=== PATIENT | female | born 1940 | race Hispanic/Latino ===

== ENCOUNTER 2018-02-03 12:08 | Outpatient (CLI) | payer MEDICARE | END 2018-02-03 12:09 | disposition home or self-care (01) | LOC: BICMAMMO 12:08 | PROVIDERS: ATTEND Family Medicine | DX: Z12.31 Encounter for screening mammogram for malignant neoplasm of breast (principal); R92.1 Mammographic calcification found on diagnostic imaging of breast | CPT/HCPCS: 77063; 77067 ==

== ENCOUNTER 2018-09-08 18:59 | Emergency (ER) | payer MEDICARE, MEDICAID ==
[2018-09-08] MEDS ORDERED: Aspirin Chewable 81 MG TAB ONE (19:14)
[2018-09-08] MEDS ORDERED: methylPREDNISolone Sod Succ/PF 125 MG/2 ML VIAL ONE (19:14)
[2018-09-08 19:32] LABS: #Basophils 0.1 thou/uL (0.0-0.2); #Eosinphils 0.6 thou/uL (0.0-0.7); #Lymphocytes 1.9 thou/uL (1.20-3.40); #Monocytes 0.4 thou/uL (0.11-0.59); #Neutrophils 5.4 thou/uL (1.40-6.50); %Basophils 1.7 % (0.0-1.0); %Eosinophils 6.7 % (0.0-10.0); %Lymphocytes 22.6 % (21.0-51.0); %Monocytes 4.3 % (0.0-10.0); %Neutrophils 64.6 % (42.0-75.0); Hemoglobin 15.3 g/dL (12.0-16.0); Mean Corpuscular HGB CONC 32.8 g/dL (32.0-36.0); Mean Corpuscular Hemoglobin 27.4 pg (27.0-31.0); Mean Corpuscular Volume 83.6 fL (78.0-98.0); Mean Platelet Volume 7.1 fL (7.4-10.4); Platelet Count 752 thou/uL (130-400); RBC Distribution Width 13.3 % (11.5-14.5); Red Blood Cell (RBC) Count 5.57 mill/uL (4.20-5.40); White Blood Cell (WBC) Count 8.3 thou/uL (4.8-10.8)
--- NOTE | 2018-09-08 19:33 | RAD ---
Portable frontal chest radiograph: 09/08/2018 COMPARISON: 07/06/2015 HISTORY: Shortness of breath FINDINGS: Lungs are clear. Heart and mediastinal contours appear within normal limits. There is ather osclerotic calcification of the aortic arch. IMPRESSION: No acute findings.
[2018-09-08 19:46] LABS: ALT (SGPT) 23 U/L (8-55); AST (SGOT) 20 U/L (5-34); Albumin 4.4 g/dL (3.4-4.8); Alkaline Phosphatase 80 U/L (40-150); Anion Gap 14 mmol/L (10-20); BUN (Urea Nitrogen) 17 mg/dL (9.8-20.1); Bilirubin, Total 0.4 mg/dL (0.2-1.2); Calc. Creatinine Clearance 0 mL/min (70-130); Carbon Dioxide 30 mmol/L (23-31); Chloride 99 mmol/L (98-107); Estimated GFR-MDRD 63; Glucose 116 mg/dL (83-110); Potassium 3.7 mmol/L (3.5-5.1); Protein, Total 7.4 g/dL (6.0-8.3); Sodium 139 mmol/L (136-145)
== END 2018-09-08 20:35 | disposition home or self-care (01) ==
LOC: SCSER 18:59
DX: J20.9 Acute bronchitis, unspecified (principal); J45.909 Unspecified asthma, uncomplicated; E11.9 Type 2 diabetes mellitus without complications; K21.9 Gastro-esophageal reflux disease without esophagitis; I10 Essential (primary) hypertension; E78.5 Hyperlipidemia, unspecified; Z79.51 Long term (current) use of inhaled steroids
CPT/HCPCS: 71045; 80053; 84484; 85025; 93005; 94640; 96374; J2930; J7620

== ENCOUNTER 2019-01-25 14:07 | Outpatient (CLI) | payer MEDICARE, MEDICAID ==
--- NOTE | 2019-01-25 14:23 | RAD ---
XR Chest Pa Lat STANDARD History: Severe persistent reactive airway disease Comparison: Radiograph September 08, 2018 Findings: Lungs are clear. No pneumothorax. No effusion. No acute osseous abnormality. Large subacromial enthesophyte on the right. Cardiac silhouette and mediastinal contours are within n ormal limits. Impression: No acute intrathoracic abnormality.
== END 2019-01-25 14:08 | disposition home or self-care (01) ==
LOC: BICRAD 14:07
PROVIDERS: ATTEND Internal Medicine
DX: J45.50 Severe persistent asthma, uncomplicated (principal)
CPT/HCPCS: 71046

== ENCOUNTER 2019-02-14 08:48 | Outpatient (CLI) | payer MEDICARE, MEDICAID ==
--- NOTE | 2019-02-14 10:42 | MMO ---
Bilateral MAMMO Bilat Screen DDI+DARLINE. CLINICAL HISTORY: Patient is 78 years old and is seen for screening. The patient has no family history of breast cancer. The patient has no personal history of cancer. VIEWS: The views performed were: bilateral craniocaudal with tomosynthesis and bilateral mediolateral oblique with tomosynthesis. FILMS COMPARED: The present examination has been compared to prior imaging studies performed at [facility] on 04/18/2014, 08/05/2015, 10/06/2016 and 02/03/2018. This study has been interpreted with the assistance of computer-aided detection. MAMMOGRAM FINDINGS: There are scattered fibroglandular densities. There are stable benign appearing calcifications seen in both breasts. There are also vascular calcifications. There are no suspicious masses, suspicious calcifications, or new areas of architectural distortion. IMPRESSION: THERE IS NO MAMMOGRAPHIC EVIDENCE OF MALIGNANCY. A ROUTINE FOLLOW-UP MAMMOGRAM IN 1 YEAR IS RECOMMENDED. THE RESULTS OF THIS EXAM WERE SENT TO THE PATIENT. ACR BI-RADS Category 2 - Benign finding MAMMOGRAPHY NOTE: 1. A negative mammogram report should not delay a biopsy if a dominant of clinically suspicious mass is present. 2. Approximately 10% to 15% of breast cancers are not detected by mammography. 3. Adenosis and dense breasts may obscure an underlying neoplasm. Reported by: SHADY INGRAM MD Electonically Signed: [id number]
== END 2019-02-14 08:49 | disposition home or self-care (01) ==
LOC: BICMAMMO 08:48
PROVIDERS: ATTEND Internal Medicine
DX: Z12.31 Encounter for screening mammogram for malignant neoplasm of breast (principal)
CPT/HCPCS: 77063; 77067

== ENCOUNTER 2019-02-15 20:11 | Emergency (ER) | payer MEDICAID, MEDICARE ==
--- NOTE | 2019-02-15 21:04 | RAD ---
XR Chest Pa Lat STANDARD History: Cough and congestion Comparison: Radiograph January 2019 Findings: Lungs are clear. No pneumothorax or effusion. Cardiac silhouette and mediastinal contours a re within normal limits. No acute osseous abnormality. Impression: No acute intrathoracic abnormality.
[2019-02-15] MEDS ORDERED: Dexamethasone 10 MG/ML VIAL ONE (23:27)
== END 2019-02-16 00:15 | disposition home or self-care (01) ==
LOC: ERS 20:11
DX: J06.9 Acute upper respiratory infection, unspecified (principal); E78.5 Hyperlipidemia, unspecified; I10 Essential (primary) hypertension; K21.9 Gastro-esophageal reflux disease without esophagitis
CPT/HCPCS: 71046; 94640; J1100; J7620

== ENCOUNTER 2019-03-01 10:41 | Outpatient (CLI) | payer MEDICARE ==
--- NOTE | 2019-03-01 13:01 | RAD ---
Exam: 3 view sinuses HISTORY: Acute rhinosinusitis. Symptoms x1 month FINDINGS: Visualized paranasal sinuses are adequately aerated. Symmetric aeration of the mastoid air cells. No gross abnormality with regard to calvarium. There does appear to be widening of the diploic space, nonspecific. IMPRESSION: 1. No radiograph evidence of sinus disease. CT can be performed if clinically warranted. 2. Widening of the calvarial diploic space. Further evaluation with noncontrast head CT warranted CODE T
== END 2019-03-01 10:42 | disposition home or self-care (01) ==
LOC: BICRAD 10:41
PROVIDERS: ATTEND Internal Medicine
DX: J01.90 Acute sinusitis, unspecified (principal)
CPT/HCPCS: 70220

== ENCOUNTER 2019-03-31 09:56 | Observation (INO) | payer MEDICARE ==
[2019-03-31 10:20] LABS: #Basophils 0.1 thou/uL (0.0-0.2); #Eosinphils 0.4 thou/uL (0.0-0.7); #Lymphocytes 1.9 thou/uL (1.20-3.40); #Monocytes 0.3 thou/uL (0.11-0.59); #Neutrophils 6.3 thou/uL (1.40-6.50); %Basophils 0.7 % (0.0-1.0); %Eosinophils 4.1 % (0.0-10.0); %Monocytes 3.4 % (0.0-10.0); %Neutrophils 70.9 % (42.0-75.0); Hemoglobin 16.9 g/dL (12.0-16.0); Mean Corpuscular HGB CONC 33.8 g/dL (32.0-36.0); Mean Corpuscular Volume 85.6 fL (78.0-98.0); Mean Platelet Volume 7.3 fL (7.4-10.4); Platelet Count 607 thou/uL (130-400); RBC Distribution Width 13.4 % (11.5-14.5); Red Blood Cell (RBC) Count 5.84 mill/uL (4.20-5.40); White Blood Cell (WBC) Count 8.9 thou/uL (4.8-10.8)
--- NOTE | 2019-03-31 10:28 | RAD ---
EXAM: Portable chest PROVIDED CLINICAL HISTORY: Chest pain COMPARISON: 09/08/2018 FINDINGS: Cardiac and mediastinal silhouette is within normal limits. No focal consolidation, pleural fluid or pneumothorax evident. IMPRESSION: No evidence for an acute cardiopulmonary process.
[2019-03-31] MEDS ORDERED: Ondansetron ODT 4 MG TAB ONE (10:30)
[2019-03-31] MEDS ORDERED: Meclizine HCl 25 MG TAB ONE (10:30)
[2019-03-31 10:38] LABS: ALT (SGPT) 24 U/L (8-55); AST (SGOT) 25 U/L (5-34); Albumin 4.5 g/dL (3.4-4.8); Alkaline Phosphatase 83 U/L (40-110); Anion Gap 12 mmol/L (10-20); BUN (Urea Nitrogen) 13 mg/dL (9.8-20.1); Bilirubin, Total 0.4 mg/dL (0.2-1.2); Calc. Creatinine Clearance 0 mL/min (70-130); Calcium 9.8 mg/dL (7.8-10.44); Carbon Dioxide 28 mmol/L (23-31); Chloride 104 mmol/L (98-107); Estimated GFR-MDRD 58; Globulin 3.2 g/dL (2.4-3.5); Glucose 194 mg/dL (83-110); Potassium 3.4 mmol/L (3.5-5.1); Protein, Total 7.7 g/dL (6.0-8.3); Sodium 141 mmol/L (136-145)
--- NOTE | 2019-03-31 10:38 | CT ---
Exam: CT brain PROVIDED CLINICAL HISTORY: Hypertension COMPARISON: None FINDINGS: The ventricular system is normal in size and morphology. No evidence for intracranial hemorrhage or mass effect. The extracranial soft tissues and osseous structures demonstrate no evidence for an acute abnormality. Diminished attenuation involving the cerebral white matter compatible with chronic microvascular ischemic change. IMPRESSION: No evidence for intracranial hemorrhage or mass effect.
[2019-03-31] MEDS ORDERED: Aspirin Chewable 81 MG TAB ONE (11:37)
[2019-03-31] MEDS ORDERED: Ondansetron ODT 4 MG TAB SL PRN (14:55)
[2019-03-31] MEDS ORDERED: Acetaminophen 325 MG TAB PO PRN ×2 (14:55→16:05)
[2019-03-31] MEDS ORDERED: Ondansetron PF 4 MG/2 ML Vial IVP PRN ×2 (14:55→18:03)
[2019-03-31] MEDS ORDERED: Meclizine HCl 25 MG TAB PO PRN (14:55)
[2019-03-31 15:02] LABS: Troponin I Less than 0.010 ng/mL (< 0.028)
[2019-03-31 15:27] VITALS: BMI 25.1
[2019-03-31] MEDS ORDERED: Senokot S 8.6-50 MG TAB PO PRN (16:05)
[2019-03-31] MEDS ORDERED: Bisacodyl 10 MG SUPP PR PRN (16:05)
[2019-03-31] MEDS ORDERED: Guaifenesin DM 100-10/5 ML UDCUP PO PRN (16:05)
[2019-03-31] MEDS ORDERED: Nitroglycerin 0.4 MG TAB (25 Tab Bottle) PO PRN (16:05)
--- NOTE | 2019-03-31 17:21 | HP ---
REASON FOR ADMISSION: Chest pain and dizziness. HISTORY OF PRESENTING ILLNESS: The patient gives history of having retrosternal chest pain, which started out yesterday evening. This was 5/10 to 6/10 in intensity. No radiation of this pain. The patient also started to have nausea and vomited from last night. She had nearly 6 episodes of stomach contents coming out. No blood in it. She felt weak and could not mobilize herself, hence called EMS and the patient presented to the ER. Currently, she has no chest pain. No cough or expectoration. No fever at home. No prior cardiac workup per the patient. PAST MEDICAL AND SURGICAL HISTORY: 1. Hypertension. 2. Dyslipidemia. 3. Appendectomy. 4. Hysterectomy. 5. Prior upper endoscopy in 03/2014. 6. Had a prior stress test done in 12/2011, which showed no fixed or reversible defects. TID was 1.0 with normal wall motion and ejection fraction of 80% then. CURRENT MEDICATION: 1. Bystolic 5 mg daily. 2. Amlodipine 2.5 mg daily. ALLERGIES: NO KNOWN DRUG ALLERGIES. PERSONAL HISTORY: Does not abuse alcohol or drugs. No history of smoking. She lives alone. FAMILY HISTORY: Mother is alive and is in [facility]. Father in his 80s from unknown cause. CODE STATUS: Full. Power of tax attorney is her [id number], Ms. Ricky Jha. REVIEW OF SYSTEMS: CONSTITUTIONAL: Negative for weight loss or gain. SKIN: Negative for rash, itching. EYES: Negative for double vision, pain. ENT/MOUTH: Negative for nose bleeding, neck stiffness, pain, tenderness. CARDIOVASCULAR: Negative for palpitations, dyspnea on exertion, orthopnea. RESPIRATORY: Negative for shortness of breath, wheezing, cough, hemoptysis, fever or night sweats. GASTROINTESTINAL: Negative for poor appetite, abdominal pain, heartburn, constipation, or diarrhea. GENITOURINARY: Negative for urgency, frequency, dysuria, nocturia. MUSCULOSKELETAL: Negative for pain, swelling. NEUROLOGIC/PSYCHIATRIC: Negative for anxiety, depression. ALLERGY/IMMUNOLOGIC: Negative for skin rash, bleeding tendency. PHYSICAL EXAMINATION: GENERAL: The patient is a 78-year-old female, who is currently not in any acute distress. VITAL SIGNS: Blood pressure 180/60 and has also had blood pressures of 136/56, pulse 70 per minute, respiratory rate 14 per minute, temperature 98.1 degrees Fahrenheit, and saturating 100% on room air. NECK: Supple. No elevated JVD. HEENT: Eyes; extraocular muscles intact. Pupils reacting to light. Oral cavity, mucous membranes are dry. No exudates or congestion. CARDIOVASCULAR SYSTEM: S1 and S2 heard. Regular rhythm. RESPIRATORY SYSTEM: Air entry 1+ bilateral. No rales or rhonchi. ABDOMEN: Soft. Bowel sounds heard. No tenderness, rigidity, or guarding. EXTREMITIES: No peripheral edema or calf tenderness. VASCULAR SYSTEM: Peripheral pulses were 1+ bilateral. No ischemic ulcerations or gangrene. CENTRAL NERVOUS SYSTEM: No gross focal deficits noted. The patient is alert, awake, and oriented well. PSYCHIATRIC SYSTEM: The patient's mood is euthymic. No hallucinations or delusions. LABORATORY DATA: White count of 8, hemoglobin and hematocrit of 16 and 50, platelet count 607, and MCV 85 with 70% neutrophils. Potassium 3.4, BUN 13, creatinine 0.9, and serum glucose 194. Liver enzymes within normal limits. Troponin x3 negative. TSH 2.7. Chest x-ray done shows no acute cardiopulmonary disease. CT brain done shows no intracranial hemorrhage or mass effect. EKG done shows normal sinus rhythm at 78 beats per minute, there is T-inversion seen in V4, V5, V6. CLINICAL IMPRESSION AND PLAN: The patient will be under observation on telemetry for chest pain, rule out acute coronary syndrome. She will be on full-dose aspirin and we will obtain a nuclear stress test in the morning. She will be kept n.p.o. after midnight. We will continue her Bystolic as before and Norvasc as before. She will be gently hydrated with normal saline at 75 mL per hour. The patient has positive orthostasis as well, likely from mild dehydration due to vomiting episodes from yesterday. The patient has labile hypertension and we will not add any new medications for now. We will continue to closely monitor her on telemetry. Job ID: [id number] [facility]
[2019-03-31] MEDS: Sodium Chloride 0.9% 1,000 ML IV SCH (18:18)
[2019-03-31] MEDS: Famotidine 20 MG TAB PO SCH (20:09)
[2019-04-01] MEDS: Sodium Chloride 0.9% 1,000 ML IV SCH ×2 (05:37→13:32)
[2019-04-01 05:41] LABS: #Basophils 0.1 thou/uL (0.0-0.2); #Eosinphils 0.2 thou/uL (0.0-0.7); #Lymphocytes 1.6 thou/uL (1.20-3.40); #Monocytes 0.4 thou/uL (0.11-0.59); #Neutrophils 4.6 thou/uL (1.40-6.50); %Basophils 1.1 % (0.0-1.0); %Eosinophils 3.5 % (0.0-10.0); %Lymphocytes 22.7 % (21.0-51.0); %Monocytes 5.1 % (0.0-10.0); %Neutrophils 67.7 % (42.0-75.0); Mean Corpuscular HGB CONC 33.4 g/dL (32.0-36.0); Mean Corpuscular Hemoglobin 29.2 pg (27.0-31.0); Mean Corpuscular Volume 87.4 fL (78.0-98.0); Mean Platelet Volume 7.8 fL (7.4-10.4); Platelet Count 472 thou/uL (130-400); RBC Distribution Width 13.5 % (11.5-14.5); White Blood Cell (WBC) Count 6.9 thou/uL (4.8-10.8)
[2019-04-01 05:42] LABS: Anion Gap 10 mmol/L (10-20); BUN (Urea Nitrogen) 11 mg/dL (9.8-20.1); Calc. Creatinine Clearance 53 mL/min (70-130); Calcium 8.5 mg/dL (7.8-10.44); Carbon Dioxide 25 mmol/L (23-31); Chloride 110 mmol/L (98-107); Cholesterol 210 mg/dl (< 200 Desired); Estimated GFR-MDRD 68; Glucose 137 mg/dL (83-110); HDL Cholesterol 30 mg/dL (>60 Neg Risk); LDL Cholesterol, Calculated 133 mg/dL; Potassium 3.5 mmol/L (3.5-5.1); Sodium 141 mmol/L (136-145); Triglycerides 233 mg/dL (Less than 150)
[2019-04-01] MEDS ORDERED: Aspirin 325 mg Enteric Coated Tablet PO SCH (09:00)
[2019-04-01] MEDS ORDERED: Nebivolol HCl 5 MG TAB PO SCH (09:00)
[2019-04-01] MEDS ORDERED: Enoxaparin Sodium 40 MG/0.4 ML SYRINGE SC SCH (09:00)
[2019-04-01] MEDS ORDERED: Amlodipine 5 MG TAB PO SCH (09:00)
[2019-04-01] MEDS ORDERED: Prevnar 13-Val Conj/PF 0.5 ML SYRINGE IM ONE (09:00)
--- NOTE | 2019-04-01 11:26 | MRI ---
Brain MRI without contrast: 04/01/2019 HISTORY: Hypertension, trouble walking TECHNIQUE: Multiplanar multisequence MR imaging of the brain obtained without contrast FINDINGS: The diffusion weighted imaging demonstrates no evidence for acute infarction and the gradie nt echo imaging demonstrates no evidence for intracranial hemorrhage. There is moderate diffuse cerebral volume loss. There is periventricular, deep, and subcortical white matter T2 and FLAIR hyperintensity, evidence of small vessel disease. A saccular aneurysm is suspected at the tip of the basilar artery measuring at least 7 mm in transver se dimension. Follow-up CT angiogram of the head advised. The imaged paranasal sinuses and mastoid air cells demonstrate no acute findings. Regional bone marro w signal intensity appears within normal limits. IMPRESSION: Cerebral volume loss and small vessel disease with no evidence for acute infarction or in tracranial hemorrhage. 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
[2019-04-01] MEDS ORDERED: Regadenoson 0.4 MG/5 ML SYRINGE ONE (11:31)
--- NOTE | 2019-04-01 11:33 | NM ---
Nuclear medicine myocardial perfusion scan: 04/01/2019 COMPARISON: None HISTORY: Chest pain, history of hypertension TECHNIQUE: SPECT imaging of the left ventricular myocardium obtained during stress and rest following the intravenous administration of 30.7 and 9mCi technetium 99 M labeled sestamibi respectively. FINDINGS: No discrete fixed or reversible defect. TID is 1.2. Left ventricular wall motion appears within normal limits. End-diastolic volume is 49 mL and end systolic volume is 10 mL. Left ventricular ejection fraction is estimated at 79%. IMPRESSION: No discrete reversible defect. Normal left ventricular wall motion. Estimated LVEF of 79%.
[2019-04-01] MEDS ORDERED: Iopamidol-370 76% 500 ML 1 ML ONE (12:11)
--- NOTE | 2019-04-01 12:15 | CT ---
CT angiogram head: 04/01/2019 HISTORY: Findings suggesting a basilar tip aneurysm on recent noncontrast enhanced brain MRI TECHNIQUE: Axial CT imaging obtained at 5 mm intervals from vertex through skull base without contras t. Subsequently, axial CT imaging at 1.25 mm intervals obtained with IV contrast using CT angiogram protocol with coronal and sagittal 3-D reformatted imaging FINDINGS: The noncontrast enhanced imaging demonstrates no intracranial hemorrhage, midline shift, ma ss effect, or ventricular enlargement. The imaged paranasal sinuses and mastoid air cells appear well-aerated. No acute osseous normality. The distal vertebral arteries appear unremarkable. The basilar artery and its branches are patent. Th ere is an aneurysm emanating from the tip of the basilar artery which measures approximately 7 mm in transverse dimension and approximately 7 mm in craniocaudal dimension. On sagittal imaging this an eurysm measures 7 mm in AP dimension. It has a wide neck and the neck of the aneurysm probably involves the origin of bilateral posterior cerebral arteries as well as the right superior cerebellar artery. This could be best assessed via conventional angiography. The imaged extracranial ICA appears unremarkable. There is atherosclerotic calcification of bilateral cavernous carotid arteries. The A1 segment appears unremarkable bilaterally as do the distal TISH branches. The M1 segment and MCA bifurcation appear within normal limits. Distal MCA branches appear intact. 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 No evidence fo r subarachnoid hemorrhage on noncontrast enhanced head CT.
[2019-04-01] MEDS: Famotidine 20 MG TAB PO SCH (13:31)
[2019-04-01 16:27] VITALS: BP 165/77; TEMP 98.5
--- NOTE | 2019-04-02 10:35 | CON ---
DATE OF CONSULTATION: HISTORY OF PRESENT ILLNESS: Ms. García is a 78-year-old woman, who only speaks Indian. She came in for evaluation in the emergency department last night for vertigo, nausea, vomiting, and some chest pain. During her workup, MRI and subsequently CT angiogram were done, revealing a basilar tip aneurysm, approximately 7 mm. There is no hemorrhage around this aneurysm. Neurosurgery was consulted. I see Ms. García in her hospital room. She is resting comfortably. She is not in any visible distress. She is alert and oriented x3. I did need to have a cap maker for me. She is moving all 4 extremities well. There is no lateralizing sensory or motor deficits. Her cranial nerves are intact. No facial drooping. Speech is spontaneous and fluent. Normal fund of knowledge. REVIEW OF SYSTEMS: A 10-point review of systems has been completed and is negative other than stated in the above HPI. PAST MEDICAL HISTORY: 1. Hyperlipidemia. 2. Hypertension. 3. Gastrointestinal disease. 4. GERD. PAST SURGICAL HISTORY: 1. Appendectomy. 2. Hysterectomy. SOCIAL HISTORY: The patient denies alcohol or drug use. No smoking history. ALLERGIES: NO KNOWN DRUG ALLERGIES. CURRENT MEDICATIONS: 1. Bystolic. 2. Amlodipine. PHYSICAL EXAMINATION: VITAL SIGNS: Temperature 97.9, heart rate 69, respirations 20, O2 saturations 98% on room air, and blood pressure 158/70. CONSTITUTIONAL: The patient is alert and oriented. She is afebrile, in no visible distress. Nontoxic, hypertensive. HEENT: Head is normocephalic and atraumatic. Pupils are equal, round, and reactive to light. Extraocular movements are intact. Hearing is intact. Moist mucous membranes. RESPIRATIONS: Normal work of breathing on room air. Symmetric chest rise. EXTREMITIES: 5/5 bilateral strength in deltoids, biceps, triceps, lab instructor strength, hip flexion, hip extension, knee flexion, knee extension, dorsiflexion, plantar flexion. NEUROLOGIC: The patient is awake, alert, and oriented x3. GCS of 15. Speech is spontaneous and fluent. Normal fund of knowledge. Short and long-term memory intact. Cranial nerves 2 through 12 are tested and intact. There are no sensory or motor deficits noted. No drift and no neglect. IMAGING STUDIES: CT angio of brain shows saccular aneurysm, measuring approximately 7 x 7 x 7 mm at the tip of the basilar artery. No evidence of subarachnoid hemorrhage. ASSESSMENT AND PLAN: Ms. 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 It is not hemorrhagic. She is neurologically intact with no lateralizing or sensory or motor deficits. We will have her follow up in our office on an outpatient basis with us and Dr. Barba. For any further questions, please contact Neurosurgery. Job ID: [id number]
== END 2019-04-01 17:56 | disposition home or self-care (01) ==
LOC: ERS 09:56 → 2SW 13:25
PROVIDERS: ADMIT Internal Medicine; ATTEND Internal Medicine
DX: R07.2 Precordial pain (principal); I72.8 Aneurysm of other specified arteries; R42 Dizziness and giddiness; R11.2 Nausea with vomiting, unspecified; I10 Essential (primary) hypertension; E78.5 Hyperlipidemia, unspecified; K21.9 Gastro-esophageal reflux disease without esophagitis; E86.0 Dehydration; Z79.899 Other long term (current) drug therapy
CPT/HCPCS: 70450; 70496; 70551; 71045; 78452; 80048; 80061; 83735; 84484 ×2; 85025; 93005; 93017; 94640; 94760 ×2; 96361 ×3; 96372; 96374; 99285; A9500; G0378 ×3; 36415; 80053; 84443; 96360; J1650; J2405; J2785; J7620; J8597; Q0162; Q9967

== ENCOUNTER → 2019-07-11 | Day surgery (SDC) | payer MEDICARE, MEDICAID ==
[~2019-07-11] MED LIST: Heparin 0 ML ONE; Heparin 10,000 UNITS/1 ML VIAL ONE; Iopamidol 370 76% 100 ML VIAL ONE; Lidocaine 1% (PF) 30 ML VIAL ONE
[2019-07-11 07:56] LABS: Anion Gap 11 mmol/L (10-20); BUN (Urea Nitrogen) 16 mg/dL (9.8-20.1); Calc. Creatinine Clearance 52 mL/min (70-130); Calcium 9.4 mg/dL (7.8-10.44); Carbon Dioxide 27 mmol/L (23-31); Chloride 106 mmol/L (98-107); Estimated GFR-MDRD 73; Glucose 133 mg/dL (83-110); Sodium 140 mmol/L (136-145)
--- NOTE | 2019-07-12 16:28 | CCL ---
DATE: 07/11/19 SURGEON: Richard Barba M.D. DRAG SAWYER: None. INDICATION: Incidentally discovered aneurysm. PROCEDURE: Cerebral angiography. ANESTHESIA: Local. TECHNIQUE: The patient is brought to the angiogram suite and placed on the table in the supine position. Both gr oins were prepped and draped in the usual sterile fashion. Following an appropriate pause, 1% lidocai ne was used to inject the right groin. A 5 Danish micropuncture set was used to gain access to the [facility] common femoral artery. Using a Seldinger technique, the needle was removed and an 5 Danish sheath was placed. A 5 Danish diagnostic catheter was passed over a Bentzen guidewire which was advanced in to the aortic arch where the left vertebral artery was selectively catheterized where an AP and later al angiogram was performed. All catheters were then removed. Hemostasis was maintained throughout. Th e wound was then closed in anatomic layers and a pressure dressing was applied. There were no known p rocedural complications.
== END ==
LOC: CCL 06:48
PROVIDERS: ATTEND Neurological Surgery
PROC: B31 Imaging, Upper Arteries, Fluoroscopy (ICD-10-PCS; principal; 2019-07-11)
DX: I67.1 Cerebral aneurysm, nonruptured (principal); Z79.82 Long term (current) use of aspirin; Z79.84 Long term (current) use of oral hypoglycemic drugs; Z79.899 Other long term (current) drug therapy
CPT/HCPCS: 36215; 36222; 80048; C1769; J1644; J2001; Q9967

== ENCOUNTER 2019-07-26 15:31 | Outpatient (CLI) | payer MEDICARE, MEDICAID ==
--- NOTE | 2019-07-26 15:57 | RAD ---
PA AND LATERAL VIEWS OF CHEST: HISTORY: Cough. FINDINGS: Comparison is made with the exam of 02/15/2019. The heart size is normal. The lungs are expanded without lobar consolidation, pneumothoraces, or ple ural effusions. There are degenerative changes in the spine. IMPRESSION: No radiographic evidence of acute cardiopulmonary process. POS: [facility]
--- NOTE | 2019-07-26 15:57 | RAD ---
SINUSES THREE VIEWS: 07/26/19 HISTORY: Acute rhinosinusitis. FINDINGS: No air fluid levels are seen in the paranasal sinuses. IMPRESSION: No evidence of acute sinusitis. POS: [facility]
== END 2019-07-26 15:32 | disposition home or self-care (01) ==
LOC: BICRAD 15:31
PROVIDERS: ATTEND Internal Medicine
DX: J01.90 Acute sinusitis, unspecified (principal); R05 Cough
CPT/HCPCS: 70220; 71046

== ENCOUNTER 2019-09-06 13:44 | Outpatient (CLI) | payer MEDICARE, MEDICAID ==
--- NOTE | 2019-09-06 14:16 | RAD ---
EXAM: Chest PA and lateral: HISTORY: Dyspnea COMPARISON: 07/26/2019 FINDINGS: Heart: Normal cardiac silhouette Aorta: Unremarkable Pulmonary vessels: Normal Costophrenic angles: Costophrenic angles are clear. Lungs: No consolidation or masses. Pneumothorax: No pneumothorax Osseous structures: No osseous abnormalities IMPRESSION: No acute cardiopulmonary process.
== END 2019-09-06 13:45 | disposition home or self-care (01) ==
LOC: RAD 13:44
PROVIDERS: ATTEND Internal Medicine Critical Care Medicine
DX: R06.00 Dyspnea, unspecified (principal)
CPT/HCPCS: 71046

== ENCOUNTER 2019-09-24 14:33 | Outpatient (CLI) | payer MEDICARE, MEDICAID ==
--- NOTE | 2019-09-24 15:14 | RAD ---
Left ankle 3 views HISTORY: Injury. Pain. FINDINGS: Ankle mortise and talar dome are maintained. Prominent soft tissue swelling over the latera l malleolus. Mild osteophytosis. No acute fracture, dislocation, or aggressive osseous erosions. IMPRESSION : Soft tissue swelling. Mild osteoarthritic changes. No acute osseous abnormalities are demonstrated.
--- NOTE | 2019-09-24 15:32 | RAD ---
LUMBAR SPINE 2 VIEWS: HISTORY: Midline low back pain. COMPARISON: None. FINDINGS: Five [id number] lumbar-type vertebrae. Mild narrowing of the L4-5 and L5-S1 disk spaces along w ith facet arthropathy. No significant listhesis. Mild narrowing of the L4-5 interspinous space. Mo derate vascular calcifications. Relatively advanced right hip joint space height loss. IMPRESSION: 1. No acute fracture or malalignment. 2. Moderate spondylosis of the lower lumbar spine. POS: HOME
== END 2019-09-24 14:34 | disposition home or self-care (01) ==
LOC: BICRAD 14:33
PROVIDERS: ATTEND Internal Medicine
DX: M25.572 Pain in left ankle and joints of left foot (principal); M54.5 Low back pain; M47.816 Spondylosis without myelopathy or radiculopathy, lumbar region; M79.89 Other specified soft tissue disorders; M19.072 Primary osteoarthritis, left ankle and foot
CPT/HCPCS: 72100

== ENCOUNTER 2020-04-13 09:17 | Inpatient (IN) | payer MEDICARE, MEDICAID ==
[2020-04-13] MEDS ORDERED: Fentanyl 100 MCG/2 ML VIAL ONE (09:29)
--- NOTE | 2020-04-13 09:37 | CT ---
EXAM: Brain CTWithout contrast: HISTORY: Level One stroke, vomiting agonal breathing hypertensive COMPARISON: None FINDINGS: No focal mass or midline shift. Very extensive bilateral subarachnoid hemorrhage as well as extensive intraventricular hemorrhage. No extra-axial subdural or epidural hemorrhage. Sinuses and mastoids are clear of acute process. IMPRESSION: Very extensive subarachnoid and intraventricular hemorrhage. Findings were discussed with Dr. Castrejon at 9:30 AM CODE CR
[2020-04-13] MEDS ORDERED: Labetalol HCl 100 MG/20 ML VIAL ONE (09:38)
[2020-04-13 09:39] LABS: #Eosinphils 0.3 thou/uL (0.0-0.7); #Monocytes 0.2 thou/uL (0.11-0.59); #Neutrophils 7.3 thou/uL (1.40-6.50); %Basophils 0.3 % (0.0-1.0); %Eosinophils 3.2 % (0.0-10.0); %Lymphocytes 11.2 % (21.0-51.0); %Monocytes 2.8 % (0.0-10.0); %Neutrophils 82.6 % (42.0-75.0); Hemoglobin 14.9 g/dL (12.0-16.0); Mean Corpuscular HGB CONC 32.1 g/dL (32.0-36.0); Mean Platelet Volume 7.8 fL (7.4-10.4); Platelet Count 453 thou/uL (130-400); RBC Distribution Width 12.4 % (11.5-14.5); Red Blood Cell (RBC) Count 5.54 mill/uL (4.20-5.40); White Blood Cell (WBC) Count 8.8 thou/uL (4.8-10.8)
[2020-04-13 09:43] LABS: INR-International Normal Ratio 1.1; PTT 33.3 sec (22.9-36.1); Prothrombin Time 14.2 sec (12.0-14.7)
[2020-04-13] MEDS ORDERED: niCARdipine 20MG In NaCl 20 MG/200 ML BAG ONE (09:43)
[2020-04-13 09:58] LABS: Albumin 3.9 g/dL (3.4-4.8)
[2020-04-13 09:59] LABS: Calcium 8.5 mg/dL (7.8-10.44); Chloride 104 mmol/L (98-107); Sodium 138 mmol/L (136-145)
[2020-04-13 10:00] LABS: Glucose 279 mg/dL (83-110)
[2020-04-13] MEDS ORDERED: fentaNYL Citrate/PF 2,000 MCG in Sodium Chloride 0.9% 60 ML IV SCH ×3 (10:00→15:15)
[2020-04-13 10:01] LABS: Protein, Total 6.9 g/dL (6.0-8.3)
[2020-04-13 10:02] LABS: Anion Gap 15 mmol/L (10-20); Bilirubin, Total 0.3 mg/dL (0.2-1.2); Carbon Dioxide 22 mmol/L (23-31)
[2020-04-13 10:03] LABS: Alkaline Phosphatase 77 U/L (40-110)
[2020-04-13 10:04] LABS: BUN (Urea Nitrogen) 17 mg/dL (9.8-20.1); Calc. Creatinine Clearance 0 mL/min (70-130); Potassium 2.8 mmol/L (3.5-5.1)
[2020-04-13 10:05] LABS: AST (SGOT) 21 U/L (5-34)
--- NOTE | 2020-04-13 10:05 | CT ---
EXAM: CT angiogram of the head including 3-D rendering: HISTORY: Hypertension vomiting agonal bleeding extensive subarachnoid and intraventricular hemorrhage COMPARISON: None FINDINGS: There is adequate opacification of the intracranial arteries. 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 Immediately adjacent to the aneurysm superiorly there are several small nodular foci of what appear to be active hemorrhage suggesting acute perianeurysmal contrast extravasation No evidence for major branch occlusion or significant high-grade stenosis of the remaining intracrani al arteries. All stenosis measurements use Nascet Criteria. 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 Findings were discussed with Dr. Castrejon in the emergency room at 10:00 AM CODE CR EXAM: CT angiogram of the neck including 3-D rendering: HISTORY: Level One stroke, vomiting, agonal bleeding, subarachnoid and intraventricular hemorrhage COMPARISON: None FINDINGS: There is adequate opacification of the extracranial arterial tree. Dependent fluid in the posterior nasopharynx The origins of the right and left carotid and vertebral arteries demonstrate no significant stenosis. Right common, internal, and external carotid arteries:No evidence for significant stenosis or occlusi ve disease. Left common, internal, and external carotid arteries:No significant stenosis or occlusive disease. Right and left vertebral arteries and basilar artery:No significant stenosis or occlusion. Soft tissue neck demonstrates no evidence for significant adenopathy, mass, or abnormal fluid collect ion. All stenosis measurements use Nascet Criteria. IMPRESSION: No significant carotid, vertebral, or basilar artery stenosis or occlusive disease or other significa nt acute process.
[2020-04-13 10:06] LABS: ALT (SGPT) 18 U/L (8-55)
[2020-04-13 10:08] LABS: Actual Bicarbonate (HCO3a) 21.1 mEq/L (22-28); Analyzer IN Cardio ER; Base Excess (BEa) -2.3 mEq/L (-2.0 to +3.0); Calcium, Ionized (arterial) 1.14 mmol/L (1.12-1.30); Carboxyhemoglobin (COHb) 0.3 gm% (0.0-3.0); Hemoglobin (Hb) 15.5 g/dL (12.0-16.0); O2 Tension (PaO2), arterial 148.6 mmHg (> 70.0); pH, Arterial 7.42 (7.35-7.45)
[2020-04-13 10:10] LABS: Puncture Site RRA
[2020-04-13] MEDS ORDERED: Magnesium 2 GM/50 ML BAG (IN WATER) ONE (10:20)
[2020-04-13] MEDS ORDERED: Potassium Chloride 20 MEQ/100 ML PREMIX BAG ONE (10:21)
--- NOTE | 2020-04-13 10:22 | RAD ---
EXAM: Chest one view: HISTORY: Intracranial subarachnoid and intraventricular hemorrhage, intubation COMPARISON: None FINDINGS: NG tube and endotracheal tube are in satisfactory location. Heart size: Within normal limits. Lungs: Clear of acute process. No evidence for confluent lobar pneumonia, significant pleural effusion, acute edema, or pneumothorax , or other significant acute process. IMPRESSION: No significant acute intrathoracic disease.
[2020-04-13] MEDS ORDERED: Ondansetron PF 4 MG/2 ML Vial IVP PRN ×2 (10:23→10:40)
[2020-04-13] MEDS ORDERED: niCARdipine 25 MG in Sodium Chloride 0.9% 250 ML 250 ML IVPB PRN (10:23)
[2020-04-13] MEDS ORDERED: Tranexamic Acid 1,000 MG/10 ML VIAL ONE (10:26)
[2020-04-13] MEDS ORDERED: Water For Inject, Bacteriostat 30 ML ONE (10:26)
[2020-04-13] MEDS ORDERED: Loperamide HCl 2 MG CAP PER TUBE PRN (10:40)
[2020-04-13] MEDS ORDERED: Bisacodyl 10 MG SUPP PR PRN (10:40)
[2020-04-13] MEDS ORDERED: hydrALAZINE 20 MG/ML VIAL SLOW IVP PRN (10:40)
[2020-04-13] MEDS ORDERED: Metoclopramide HCl 10 MG/2 ML VIAL IVP PRN (10:40)
[2020-04-13] MEDS ORDERED: Dextrose 5% in Water 1,000 ML IV PRN (10:40)
[2020-04-13] MEDS ORDERED: Dextrose 50% Abboject 50 ML SYRINGE SLOW IVP PRN (10:40)
[2020-04-13] MEDS ORDERED: Senokot S 8.6-50 MG TAB PER TUBE PRN (10:40)
[2020-04-13] MEDS ORDERED: Labetalol HCl 100 MG/20 ML VIAL SLOW IVP PRN (10:40)
[2020-04-13] MEDS ORDERED: Acetaminophen 325 MG TAB PER TUBE PRN (10:40)
[2020-04-13] MEDS ORDERED: Ventilator Sedation Protocol 1 EACH FS SCH (10:41)
[2020-04-13] MEDS ORDERED: niCARdipine 25 MG in Sodium Chloride 0.9% 250 ML 240 ML IVPB SCH (10:45)
--- NOTE | 2020-04-13 10:49 | PDOC.HHP ---
Hospitalist HPI - History of Present Illness Altered mental status History of Present Illness: 79-year-old female who presented to emergency room for altered mental status, patient was unresponsive, family called paramedics, as per paramedics patient was hypertensive and she was having agonal respiration, patient was intubated and patient was given ketamine and rocuronium without any complication, patient was given labetalol 20 mg IV for blood pressure, patient had CT brain as well as CT angiography which showed extensive subarachnoid hemorrhage, neurosurgeon was consulted, patient did not have any trauma, subsequently medicine team was consulted for admission. I tried to reach out family member on listed phone number as well as no family member present bedside and family member not able to pick phone so unable to talk to them. ED Course: In emergency room patient is given potassium chloride magnesium sulfate 2 g, Cyklokapron, fentanyl, Cardene drip, labetalol, fentanyl Hospitalist ROS - Review of Systems ROS unobtainable: due to endotracheal tube - Medication Medications: Allergies No Known Allergies Allergy (Verified 07/28/19 21:25) Medication Instructions Recorded Confirmed Type Nebivolol HCl [Bystolic] 1 tab PO DAILY 03/31/19 07/11/19 History Amlodipine [Norvasc] 10 mg PO DAILY #30 tab 04/01/19 07/11/19 Rx ALButerol Sulfate [Ventolin Neb] 1 applic NASAL PRN PRN 07/10/19 07/11/19 History ALButerol Sulfate [Ventolin Neb] 1 puff PO DAILY 07/10/19 07/11/19 History Aspirin 325 mg PO DAILY 07/10/19 07/11/19 History Pravastatin Sodium [Pravachol] 20 mg PO DAILY 07/10/19 07/11/19 History sitaGLIPtin Phosphate [Januvia] 25 mg PO DAILY 07/10/19 07/11/19 History Resuscitation Status - Order Detail: 04/13/20 10:26 Resuscitation Status Routine Resuscitation Status: FULL: Full Resuscitation Hospitalist History - Past Medical History Other Medical History: Past medical history Hypertension, Dyslipidemia Diabetes type 2 Past surgical history Appendicectomy Hysterectomy Upper endoscopy Past psychiatric history Reviewed and negative - Family History Other Family History: No strong family history of premature coronary artery disease stroke or cancer - Social History Other Social History: Patient lives at home with family, no history of tobacco alcohol or illicit drug abuse as per previous history - Exam General Appearance: NAD General - other findings: Patient is on ventilator Eye: PERRL ENT: normocephalic atraumatic ENT - other findings: Endotracheal tube in place Neck: symmetric, no JVD, no thyromegaly Heart: RRR, no murmur, no gallops, no rubs Respiratory: no wheezes, no rales, no ronchi Gastrointestinal: soft, non-distended, normal bowel sounds Extremities: no clubbing, no edema Skin: normal turgor, no lesions Neurological - other findings: Unable to examine due to intubated status Psychiatric: normal affect, normal behavior Hospitalist Results - Labs Result Diagrams: 04/13/20 09:29 04/13/20 09:29 Lab results: WBC 8.8 thou/uL (4.8-10.8) 04/13/20 09: Hgb 14.9 g/dL (12.0-16.0) 04/13/20 09: Hct 46.5 % (36.0-47.0) 04/13/20 09: MCV 84.0 fL (78.0-98.0) 04/13/20 09:29 Plt Count 453 thou/uL (130-400) H 04/13/20 09:29 Neutrophils % 82.6 % (42.0-75.0) H 04/13/20 09:29 ABG pH 7.42 (7.35-7.45) 04/13/20 10:03 ABG pCO2 33.0 mmHg (35.0-45.0) L 04/13/20 10:03 ABG pO2 148.6 mmHg (> 70.0) H 04/13/20 10:03 Sodium 138 mmol/L (136-145) 04/13/20 09:29 Potassium 2.8 mmol/L (3.5-5.1) L* 04/13/20 09: Chloride 104 mmol/L (98-107) 04/13/20 09: Carbon Dioxide 22 mmol/L (23-31) L 04/13/20 09: BUN 17 mg/dL (9.8-20.1) 04/13/20 09: Creatinine 0.83 mg/dL (0.6-1.1) 04/13/20 09: Glucose 279 mg/dL (83-110) H 04/13/20 09:29 Calcium 8.5 mg/dL (7.8-10.44) 04/13/20 09:29 Total Bilirubin 0.3 mg/dL (0.2-1.2) 04/13/20 09:29 AST 21 U/L (5-34) 04/13/20 09:29 ALT 18 U/L (8-55) 04/13/20 09: Alkaline Phosphatase 77 U/L (40-110) 04/13/20:29 Troponin I 0.011 ng/mL (< 0.028) 04/13/20 09:29 Serum Total Protein 6.9 g/dL (6.0-8.3) 04/13/20: Albumin 3.9 g/dL (3.4-4.8) 04/13/20 09:29 - EKG Interpretation EKG: Sinus bradycardia, nonspecific ST-T changes, prolonged QT interval - Radiology Interpretation Other Status: image reviewed by me Additional Comment: CTA Angio Head W WO Con Observe DT: Shahrzad Apr 13, 2020, CTABR EXAM: CT angiogram of the head including 3-D rendering: HISTORY: Hypertension vomiting agonal bleeding extensive subarachnoid and intraventricular hemorrhage COMPARISON: None FINDINGS: There is adequate opacification of the intracranial arteries. 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 Immediately adjacent to the aneurysm superiorly there are several small nodular foci of what appear to be active hemorrhage suggesting acute perianeurysmal contrast extravasation No evidence for major branch occlusion or significant high-grade stenosis of the remaining intracrani al arteries. All stenosis measurements use Nascet Criteria. 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 Findings were discussed with Dr. Castrejon in the emergency room at 10:00 AM CODE CR EXAM: CT angiogram of the neck including 3-D rendering: HISTORY: Level One stroke, vomiting, agonal bleeding, subarachnoid and intraventricular hemorrhage COMPARISON: None FINDINGS: There is adequate opacification of the extracranial arterial tree. Dependent fluid in the posterior nasopharynx The origins of the right and left carotid and vertebral arteries demonstrate no significant stenosis. Right common, internal, and external carotid arteries:No evidence for significant stenosis or occlusi ve disease. Left common, internal, and external carotid arteries:No significant stenosis or occlusive disease. Right and left vertebral arteries and basilar artery:No significant stenosis or occlusion. Soft tissue neck demonstrates no evidence for significant adenopathy, mass, or abnormal fluid collect ion. All stenosis measurements use Nascet Criteria. IMPRESSION: No significant carotid, vertebral, or basilar artery stenosis or occlusive disease or other significa nt acute process. Hospitalist H&P A/P - Problem (1) Acute encephalopathy Code(s): G93.40 - ENCEPHALOPATHY, UNSPECIFIED Status: Acute (2) Acute respiratory failure Code(s): J96.00 - ACUTE RESPIRATORY FAILURE, UNSP W HYPOXIA OR HYPERCAPNIA Status: Acute Assessment and Plan: Due to subarachnoid hemorrhage (3) Subarachnoid hemorrhage Code(s): I60.9 - NONTRAUMATIC SUBARACHNOID HEMORRHAGE, UNSPECIFIED Status: Acute Assessment and Plan: Nontraumatic subarachnoid hemorrhage (4) Hypertension Code(s): I10 - ESSENTIAL (PRIMARY) HYPERTENSION Status: Chronic Qualifiers: Hypertension type: essential hypertension Qualified Code(s): I10 - Essential (primary) hypertension (5) Diabetes type 2, controlled Code(s): E11.9 - TYPE 2 DIABETES MELLITUS WITHOUT COMPLICATIONS Status: Chronic (6) Dyslipidemia Code(s): E78.5 - HYPERLIPIDEMIA, UNSPECIFIED Status: Chronic (7) Hypokalemia Code(s): E87.6 - HYPOKALEMIA Status: Acute - Plan Plan: Regarding respiratory failure, patient is intubated, pulmonology will be consulted for vent management Regarding subarachnoid hemorrhage, patient will be started on Cardene drip, nimodipine, gentle IV fluid, neurosurgery consulted, will continue conservative therapy, stroke team evaluation, Regarding hypokalemia, potassium has been replaced in the emergency room, will monitor labs Regarding diabetes we will continue to monitor insulin as per sliding scale every 6 hourly, DVT prophylaxis SCD GI prophylaxis Protonix 40 mg IV daily CODE STATUS patient is full code Disposition plan based on clinical course.
[2020-04-13] MEDS ORDERED: DISCONTINUE PREVIOUS NARCOTIC PAIN MEDICATIONS AND BENZODIAZEPINES FS SCH ×2 (11:00→15:15)
[2020-04-13] MEDS ORDERED: Propofol BOLUS 1,000 MG/100 ML VIAL IV PRN ×2 (11:00→15:15)
[2020-04-13] MEDS ORDERED: Fentanyl BOLUS 250 ML IVPB PRN ×2 (11:00→15:15)
[2020-04-13] MEDS ORDERED: Morphine 2 MG/ML VIAL SLOW IVP PRN ×2 (11:00→15:15)
[2020-04-13] MEDS ORDERED: Lorazepam 2 MG/ML VIAL SLOW IVP PRN ×2 (11:00→15:15)
[2020-04-13] MEDS ORDERED: Propofol 1,000 MG/100 ML VIAL IV PRN ×2 (11:00→15:15)
[2020-04-13] MEDS ORDERED: Electrolyte Replacement Protocol 1 EACH FS SCH (11:35)
[2020-04-13 11:40] LABS: SARS-CoV-2 NAA Rapid Test DETECTED (NotDetected)
[2020-04-13] MEDS ORDERED: Iopamidol-370 76% 500 ML 1 ML ONE (11:42)
--- NOTE | 2020-04-13 12:39 | CON ---
DATE OF CONSULTATION: 04/13/2020 HISTORY OF PRESENT ILLNESS: Ms. García is a 79-year-old female, who presents to the emergency department 1 hour post altered mental status and became unresponsive per family. She is known to have a history of hypertension and had a coiling of aneurysm on 07/11/[address] Barba. When EMS arrived, the patient was hypertensive and given labetalol 20 mg for her blood pressure control. She was also given 75 mg of ketamine and 75 mg of rocuronium and intubated in the field. The patient was also given an additional 100 mg of ketamine on transit. CT of the head indicated a large subarachnoid hemorrhage. 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 REVIEW OF SYSTEMS: Noncontributory. MEDICAL AND SURGICAL HISTORY: 1. Hypertension. 2. Dyslipidemia. 3. Appendectomy. 4. Hysterectomy. 5. Prior upper endoscopy in 2013. 6. Cerebral angiography on 07/11/2019 by Richard Barba MD. MEDICATIONS: 1. Bystolic 5 mg. 2. Amlodipine 2.5 mg. ALLERGIES: NO KNOWN DRUG ALLERGIES. SOCIAL HISTORY: Nonsmoker. Does not abuse alcohol or drugs. She lives alone. FAMILY HISTORY: Mother alive and is in [facility]. Father in his 80s from unknown cause. PHYSICAL EXAMINATION: VITAL SIGNS: BP 140/72, pulse 82, afebrile. HEENT: Pupils are equal and reactive to light. NECK: Soft, supple. No masses are noted. Range of motion is intact. NEUROLOGICAL: Unable to get a good neurological exam due to paralytic used in the field. NEUROLOGICAL EAM: Late morning and late afternoon there was no corneal reflex or \ gag reflex noted on exam. LABORATORY DATA: White blood cell 8.8, RBC 5.54, hemoglobin 14.9, hematocrit 46.5, platelet count 453. PT 14.2, INR 1.1, PTT 33.3, sodium 138. IMAGING DATA: CT of head, large subarachnoid hemorrhage. 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 ASSESSMENT: 1. Subarachnoid hemorrhage. 2. Hypertension. 3. Diabetes type 2. 4. Dyslipidemia. PLAN: Amicar given in the emergency room due to active bleeding. The patient will be admitted to the unit and decide if there is hydrocephalus or not. Neurosurgery will contact Dr. Barba about coiling. Give an hour or more to improve and to be sure multiple half-life's of medications are over and then re-examine the patient for neurological exam. Job ID: [id number] MTDD
[2020-04-13] MEDS: Sodium Chloride 0.9% 1,000 ML IV SCH (13:06)
[2020-04-13] MEDS: niMODipine 30 MG CAP PER TUBE SCH ×3 (13:07→20:49)
[2020-04-13 13:28] LABS: Troponin I 0.103 ng/mL (< 0.028)
[2020-04-13] MEDS ORDERED: FLU VACC QS2020-21(65YR UP)/PF 240 MCG/0.7 ML SYRINGE IM ONE (13:30)
[2020-04-13] MEDS: Potassium Bicarbonate/Cit Ac 20 MEQ TAB PO SCH ×2 (14:30→19:42)
[2020-04-13] MEDS: HumaLOG 300 UNITS/3 ML VIAL SC PRN ×2 (14:55→22:47)
--- NOTE | 2020-04-13 16:15 | PRG ---
DATE OF SERVICE: 04/13/2020 I personally examined the patient, reviewed records and imaging, and agreed with the notes of Paulie Luong PA-C. Briefly, Susy García is a 79-year-old woman with a known basilar tip aneurysm who came to the emergency department today with acute neurological decline. She required intubation. CT examination of brain showed diffuse large amount of subarachnoid hemorrhage with intraventricular extension and some ventricular dilation. CT angiography showed extravasation of contrast from the tip of the aneurysm. Unfortunately, her neurological examination was exceedingly poor after her scanning. She lost brainstem reflexes already. She was moved from Intensive Care. Amicar was given for ongoing bleeding. Blood pressure was controlled. She has been in the ICU since. We have given her ketamine and rocuronium more than enough time to leave her system for examination. Where she had a gag and cough earlier, I cannot elicit that reflex on my examination currently. Both pupils are midline, they are large and do not react. There is no corneal reflex to stimulus of the cornea in the V1 and V2 distribution on both sides. There is no doll eyes reflex. I cannot elicit a gag or cough. I did not perform an apnea test. I reviewed imaging and the findings are noted above. I just got off the phone with the patient's daughter and I let her know that I did not find any brain function on my examination. However, she is Korean-speaking primarily and I will call her back with an med spa manager to make sure I have answered all of her questions. This 79-year-old with basilar tip aneurysm rupture will do poorly, unfortunately. I do not recommend any intervention other than comfort care. Job ID: [id number]
[2020-04-13 17:47] LABS: Troponin I 0.228 ng/mL (< 0.028)
[2020-04-13 18:06] LABS: Potassium 4.7 mmol/L (3.5-5.1)
[2020-04-13] MEDS: levETIRAcetam in NS 500 MG in Premix Bag 1 BAG IVPB SCH (20:49)
[2020-04-14] MEDS: niMODipine 30 MG CAP PER TUBE SCH ×3 (01:00→08:08)
[2020-04-14 04:13] LABS: #Lymphocytes 0.6 thou/uL (1.20-3.40); #Monocytes 0.5 thou/uL (0.11-0.59); #Neutrophils 11.7 thou/uL (1.40-6.50); %Eosinophils 0.2 % (0.0-10.0); %Lymphocytes 4.6 % (21.0-51.0); %Monocytes 3.7 % (0.0-10.0); %Neutrophils 91.4 % (42.0-75.0); Hemoglobin 13.8 g/dL (12.0-16.0); Hemoglobin A1c 6.2 % (4.0-6.0); Mean Corpuscular HGB CONC 33.7 g/dL (32.0-36.0); Mean Corpuscular Hemoglobin 28.5 pg (27.0-31.0); Mean Corpuscular Volume 84.6 fL (78.0-98.0); Mean Platelet Volume 8.1 fL (7.4-10.4); Platelet Count 458 thou/uL (130-400); RBC Distribution Width 12.6 % (11.5-14.5); Red Blood Cell (RBC) Count 4.83 mill/uL (4.20-5.40); White Blood Cell (WBC) Count 12.8 thou/uL (4.8-10.8)
[2020-04-14 04:26] LABS: Anion Gap 16 mmol/L (10-20); BUN (Urea Nitrogen) 21 mg/dL (9.8-20.1); Calc. Creatinine Clearance 43 mL/min (70-130); Calcium 8.5 mg/dL (7.8-10.44); Carbon Dioxide 16 mmol/L (23-31); Cardiac Risk 4.1 (Less than 4.5); Chloride 110 mmol/L (98-107); Cholesterol 175 mg/dl (< 200 Desired); Glucose 233 mg/dL (83-110); HDL Cholesterol 43 mg/dL (>60 Neg Risk); LDL Cholesterol, Calculated 99 mg/dL; Sodium 138 mmol/L (136-145); Triglycerides 165 mg/dL (Less than 150)
--- NOTE | 2020-04-14 05:21 | CON ---
DATE OF CONSULTATION: 04/13/2020 REASON FOR CONSULTATION: Subarachnoid hemorrhage, possible brain , respiratory failure requiring mechanical ventilation. HISTORY OF PRESENT ILLNESS: Ms. García is a pleasant 79-year-old female, whom I have had the opportunity to see in the office in the past in regard to obstructive lung disease. This morning, she woke up, was initially at her baseline, then became suddenly unresponsive. She had some nausea and I believe some emesis. By the time paramedics arrived, she was hypertensive and having agonal respirations. She was intubated in the field. She was given a dose of rocuronium. About 8:30 this morning, she was brought to the ER. She was found to have a CT showing extensive subarachnoid hemorrhage. PAST MEDICAL HISTORY: 1. Chronic obstructive pulmonary disease. 2. Hypertension. 3. Hyperlipidemia. 4. Diabetes mellitus type 2. PAST SURGICAL HISTORY: 1. Appendectomy. 2. Hysterectomy. 3. Upper endoscopy. MEDICATIONS: Prior to admission; 1. Bystolic. 2. Norvasc. 3. Ventolin. 4. Aspirin. 5. Pravastatin. 6. Januvia. FAMILY MEDICAL HISTORY: Unremarkable. SOCIAL HISTORY: Nonsmoker. Does not consume alcohol. Does not use illicit drugs. Past pulmonary function test demonstrated mild obstructive impairment. PHYSICAL EXAMINATION: VITAL SIGNS: Heart rate 52, O2 saturation , blood pressure 116/56, O2 saturation . GENERAL: The patient is obtunded. NEUROLOGICAL: Her pupils are 4 mm fixed and unresponsive to light. She has no oculocephalic reflex. She has no gag reflex. She has no withdrawal to pain. She has no spontaneous respirations. It should be noted that during this exam, the patient was being warmed, but her core temperature was 93. HEENT: Otherwise unremarkable. NECK: No JVD. LUNGS: Clear. CARDIAC: S1, S2. Slightly bradycardic. ABDOMEN: Soft. No hepatosplenomegaly. EXTREMITIES: No clubbing, cyanosis, or edema. LABORATORY DATA: White blood cell count 8.8, hematocrit 46.5, platelet count 453. INR 1.1, PTT 33.3. PH 7.42, pCO2 of 33, PO2 of 148 on SIMV rate 14, tidal volume 430, PEEP 5, pressure support 10, FiO2 of 40%. Sodium 138, potassium 2.8, chloride 104, CO2 of 22, BUN 17, creatinine 0.8, glucose 279. Chest x-ray demonstrates endotracheal tube in good position. There is no mass, effusion, or infiltrate. [place] [facility] [place] CT angiogram demonstrated no significant findings. Brain CT demonstrates severe subarachnoid and intraventricular hemorrhage, most notable in 3rd ventricles. ASSESSMENT: 1. Massive subarachnoid hemorrhage. 2. Grossly compromised neurologic status suggestive of brain , but cannot be completely confirmed at this time due to hypothermia. 3. Acute respiratory failure requiring mechanical ventilation. 4. Hypokalemia. PLAN: 1. Supportive care with serial neurologic exams. 2. Potassium replacement if that has not previously been done. 3. Continue mechanical ventilation. 4. Likely will need a cerebral blood flow study once she has been warmed to a core temperature of 97. Job ID: [id number]
[2020-04-14 05:22] VITALS: TEMP 97.5
[2020-04-14 05:26] VITALS: BMI 22.2
[2020-04-14] MEDS: Sodium Chloride 0.9% 1,000 ML IV SCH (06:18)
--- NOTE | 2020-04-14 07:29 | PRG ---
DATE OF SERVICE: I stopped by the room of Susy García in the ICU this morning. She does not have brainstem reflexes. Overnight, she has been afebrile. Blood pressures have been 110s to 130s, heart rate in the 70s. She has not had significant increase in diuresis that we sometimes see yet. There is no pupillary reflex, corneal reflex, Doll's eyes reflex, or gag. I did not turn off the ventilator. Ms. García is likely brain . Confirmatory test would be an apnea test. Family can help decide whether that is necessary. Given her COVID positive test, I doubt that she is a candidate for organ donation, but will have to approach that team to confirm. I spoke through an cytogenetic technologist with the daughter for quite some time yesterday about this. Job ID: [id number]
[2020-04-14 07:38] VITALS: BP 127/61
[2020-04-14 08:02] LABS: Actual Bicarbonate (HCO3a) 20.9 mEq/L (22-28); Base Excess (BEa) -0.6 mEq/L (-2.0 to +3.0); CO2 Tension 26.4 mmHg (35.0-45.0); Calcium, Ionized (arterial) 1.15 mmol/L (1.12-1.30); Carboxyhemoglobin (COHb) 0.3 gm% (0.0-3.0); Hemoglobin (Hb) 13.5 g/dL (12.0-16.0); O2 Tension (PaO2), arterial 187.1 mmHg (> 70.0); Potassium - ABG Lab 3.76 mmol/L (3.70-5.30); pH, Arterial 7.52 (7.35-7.45)
[2020-04-14 08:03] LABS: Puncture Site RRA
[2020-04-14] MEDS: levETIRAcetam in NS 500 MG in Premix Bag 1 BAG IVPB SCH (08:08)
--- NOTE | 2020-04-14 08:16 | RAD ---
PORTABLE CHEST: HISTORY: Subarachnoid hemorrhage. COMPARISON: 04/13/2020. FINDINGS: ET tube and NG tube are in place. The lungs appear clear of infiltrate. No vascular congestion or e harleen. Heart size normal. IMPRESSION: No acute lung process. POS: AGW
--- NOTE | 2020-04-14 08:43 | PRG ---
DATE OF SERVICE: 04/14/2020 35 minutes of critical care time. SUBJECTIVE: The patient is obtunded on mechanical ventilation. OBJECTIVE: VITAL SIGNS: Temperature 97.5, pulse 66, blood pressure 127/61, O2 saturations 98%. NEUROLOGIC: Flat. I do not detect any spontaneous respirations. No gag reflex. No corneal reflex. No pupillary response. No withdrawal to pain. HEENT: Otherwise, unremarkable. NECK: No JVD. LUNGS: Clear. CARDIAC: S1 and S2. Regular. ABDOMEN: Soft. EXTREMITIES: No edema. LABORATORY DATA: ABG; pH 7.52, pCO2 of 26, pO2 of 187. Sodium 138, potassium 4, chloride 110, CO2 of 16, BUN 21, creatinine 0.9, glucose 233. White blood cell count 12.8, hematocrit 40, and platelet count 458. Chest x-raydemonstrates good endotracheal tube position, clear lung nevarez. ASSESSMENT: 1. Status post aneurysmal bleed. 2. COVID-19 infection. 3. Likely brain . PLAN: I have decreased her ventilatory rate and tidal volume so that her pH will come down. After that, we will proceed with apnea test provided pH is less than 7.45. If the apnea test demonstrates pCO2 that rises 20 points, then the patient will be pronounced clinically brain and can be removed from support. Job ID: [id number]
[2020-04-14] MEDS ORDERED: Pantoprazole 40 MG VIAL IVP SCH ×2 (09:00)
[2020-04-14 09:29] LABS: Base Excess (BEa) -5.2 mEq/L (-2.0 to +3.0); CO2 Tension 32.8 mmHg (35.0-45.0); Calcium, Ionized (arterial) 1.17 mmol/L (1.12-1.30); Carboxyhemoglobin (COHb) 0.3 gm% (0.0-3.0); O2 Tension (PaO2), arterial 178.6 mmHg (> 70.0); Potassium - ABG Lab 3.77 mmol/L (3.70-5.30); pH, Arterial 7.38 (7.35-7.45)
[2020-04-14 09:39] LABS: Actual Bicarbonate (HCO3a) 22.8 mEq/L (22-28); CO2 Tension 54.4 mmHg (35.0-45.0); Carboxyhemoglobin (COHb) 0.1 gm% (0.0-3.0); Hemoglobin (Hb) 13.1 g/dL (12.0-16.0); O2 Tension (PaO2), arterial 102.1 mmHg (> 70.0); Potassium - ABG Lab 3.65 mmol/L (3.70-5.30)
[2020-04-14 09:39] LABS: Puncture Site RRA
[2020-04-14 09:41] LABS: Puncture Site RRA; pH, Arterial 7.24 (7.35-7.45)
[2020-04-14 09:42] LABS: Actual Bicarbonate (HCO3a) 22.9 mEq/L (22-28); Base Excess (BEa) -5.2 mEq/L (-2.0 to +3.0); CO2 Tension 55.9 mmHg (35.0-45.0); Calcium, Ionized (arterial) 1.21 mmol/L (1.12-1.30); Carboxyhemoglobin (COHb) 0.2 gm% (0.0-3.0); O2 Tension (PaO2), arterial 101.5 mmHg (> 70.0); Potassium - ABG Lab 3.65 mmol/L (3.70-5.30)
[2020-04-14 09:43] LABS: Puncture Site RRA; pH, Arterial 7.23 (7.35-7.45)
[2020-04-14 10:23] LABS: Actual Bicarbonate (HCO3a) 22.1 mEq/L (22-28); Base Excess (BEa) -5.2 mEq/L (-2.0 to +3.0); CO2 Tension 50.3 mmHg (35.0-45.0); Calcium, Ionized (arterial) 1.19 mmol/L (1.12-1.30); Carboxyhemoglobin (COHb) 0.2 gm% (0.0-3.0); Hemoglobin (Hb) 12.7 g/dL (12.0-16.0); O2 Tension (PaO2), arterial 128.7 mmHg (> 70.0); Potassium - ABG Lab 3.98 mmol/L (3.70-5.30); pH, Arterial 7.26 (7.35-7.45)
[2020-04-14 10:35] LABS: Actual Bicarbonate (HCO3a) 22.3 mEq/L (22-28); Base Excess (BEa) -7.2 mEq/L (-2.0 to +3.0); Calcium, Ionized (arterial) 1.22 mmol/L (1.12-1.30); Hemoglobin (Hb) 12.7 g/dL (12.0-16.0); Potassium - ABG Lab 3.87 mmol/L (3.70-5.30)
[2020-04-14 10:38] LABS: Actual Bicarbonate (HCO3a) 23.5 mEq/L (22-28); Base Excess (BEa) -6.2 mEq/L (-2.0 to +3.0); Calcium, Ionized (arterial) 1.22 mmol/L (1.12-1.30); Carboxyhemoglobin (COHb) 0.1 gm% (0.0-3.0); Hemoglobin (Hb) 12.7 g/dL (12.0-16.0); O2 Tension (PaO2), arterial 97.6 mmHg (> 70.0); Potassium - ABG Lab 3.93 mmol/L (3.70-5.30)
[2020-04-14 10:44] LABS: Actual Bicarbonate (HCO3a) 22.6 mEq/L (22-28); Calcium, Ionized (arterial) 1.23 mmol/L (1.12-1.30); Carboxyhemoglobin (COHb) 0.4 gm% (0.0-3.0); Hemoglobin (Hb) 12.6 g/dL (12.0-16.0); O2 Tension (PaO2), arterial 96.2 mmHg (> 70.0); Potassium - ABG Lab 3.95 mmol/L (3.70-5.30)
[2020-04-14 10:56] LABS: Puncture Site RRA
[2020-04-14 10:57] LABS: CO2 Tension 64.2 mmHg (35.0-45.0); pH, Arterial 7.16 (7.35-7.45)
[2020-04-14 10:58] LABS: Puncture Site RRA; pH, Arterial 7.16 (7.35-7.45)
[2020-04-14 10:59] LABS: CO2 Tension 67.6 mmHg (35.0-45.0); Puncture Site RRA
[2020-04-14 11:00] LABS: CO2 Tension 73.1 mmHg (35.0-45.0); pH, Arterial 7.11 (7.35-7.45)
[2020-04-14 11:01] LABS: Puncture Site RRA
--- NOTE | 2020-04-15 18:36 | PDOC.DS.DS ---
Provider - Provider Date of Admission: 04/13/20 10:40 Date of Discharge: 04/14/20 Admitting Provider: Lynda Bolanos MD Primary Care Physician: Francis Herman MD Course - Hospital Course Hospital Course: NOTE: Summary per review of records and for documentation purposes. This patient had at time of my rounds and was not seen for evaluation. 79-year-old female who presented to emergency room for altered mental status, patient was unresponsive, family called paramedics, as per paramedics patient was hypertensive and she was having agonal respiration, patient was intubated and patient was given ketamine and rocuronium without any complication, patient was given labetalol 20 mg IV for blood pressure, patient had CT brain as well as CT angiography which showed extensive subarachnoid hemorrhage, neurosurgeon was consulted, patient did not have any trauma, subsequently medicine team was consulted for admission. Patient later admitted and followed in the ICU. Given aminocaproic acid in ED with hopes to help bleed. At some point considered from possible coiling by neurosurgery. At time of neurosurgery evaluation patient d id not show any signs of brain activity and neurosurgery recommended against any intervention. Comfort measures were recommended and discussed with family. Apnea test and neuro exam was unfortunately indicative of brain . Patient was declared brain at 10:45 AM. Resuscitation Status: 04/13/20 15:52 Resuscitation Status Routine Resuscitation Status: DNAR: NO Resuscitation Discussed with: Daughter (through sign language interpreter) Kristy García Additional comments: Already intubated, daughter agreed not to put mom through chest compressions - Labs Lab Results: 04/14/20 03:39 04/14/20 03:39 Abnormal Lab Results - Last 48 hrs 04/14/20 03:39: Chloride 110 H, Carbon Dioxide 16 L, BUN 21 H, Triglycerides 165 H 04/14/20 03:39: Hemoglobin A1c 6.2 H 04/14/20 03:39: WBC 12.8 H, Plt Count 458 H, Neutrophils % 91.4 H, Lymphocytes % 4.6 L, Neutrophils # 11.7 H, Lymphocytes # 0.6 L 04/14/20 07:36: Bicarbonate Actual 20.9 L, ABG pH 7.52 H, ABG pCO2 26.4 L, ABG pO2 187.1 H, ABG O2 Sat (Measured) 99.3 H, ABG Oxyhemoglobin 98.7 H, A-a O2 Gradient 65.100 H, Chloride 109 H 04/14/20 09:25: Bicarbonate Actual 19.0 L, ABG pCO2 32.8 L, ABG pO2 178.6 H, ABG O2 Sat (Measured) 99.1 H, ABG Base Excess -5.2 L, ABG Oxyhemoglobin 98.5 H, A-a O2 Gradient 65.600 H, Chloride 109 H 04/14/20 09:33: ABG pH 7.23 L*, ABG pCO2 55.9 H, ABG pO2 101.5 H, ABG O2 Content 17.7 L, ABG Base Excess -5.2 L, ABG Deoxyhemoglobin 3.2 H, Potassium 3.65 L, Chloride 110 H 04/14/20 09:33: ABG pH 7.24 L*, ABG pCO2 54.4 H, ABG pO2 102.1 H, ABG O2 Content 17.9 L, ABG Base Excess -5.0 L, ABG Deoxyhemoglobin 3.2 H, Potassium 3.65 L, Chloride 109 H 04/14/20 10:30: ABG pH 7.26 L, ABG pCO2 50.3 H, ABG pO2 128.7 H, ABG O2 Sat (Measured) 98.3 H, ABG O2 Content 17.7 L, ABG Base Excess -5.2 L, Chloride 110 H 04/14/20 10:30: ABG pH 7.16 L*, ABG pCO2 67.6 H*, ABG pO2 97.6 H, ABG O2 Content 17.2 L, ABG Base Excess -6.2 L, ABG Deoxyhemoglobin 4.1 H, Chloride 109 H 04/14/20 10:30: ABG pH 7.16 L*, ABG pCO2 64.2 H*, ABG pO2 97.0 H, ABG O2 Content 17.2 L, ABG Base Excess -7.2 L, ABG Deoxyhemoglobin 4.2 H, Chloride 109 H 04/14/20 10:50: ABG pH 7.11 L*, ABG pCO2 73.1 H*, ABG pO2 96.2 H, ABG O2 Content 16.9 L, ABG Base Excess -8.0 L, ABG Deoxyhemoglobin 4.8 H, Chloride 109 H - Physical Exam Vitals: Weight Weight 125 lb 12.8 oz Most Recent Monitor Data Heart Rate from ECG 22 NIBP 55/29 NIBP BP-Mean 37 Respiration from ECG 0 SpO2 74 Physical Exam: The patient was seen and examined on the day of discharge. Problem - Discharge Plan Plan of Treatment: Please refer to H&P by Dr. Bolanos for initial assessment and plan. Plan - Discharge Medications Home Medications: Medication Instructions Recorded Confirmed Type Nebivolol HCl [Bystolic] 1 tab PO DAILY 03/31/19 07/11/19 History Amlodipine [Norvasc] 10 mg PO DAILY #30 tab 04/01/19 07/11/19 Rx ALButerol Sulfate [Ventolin Neb] 1 applic NASAL PRN PRN 07/10/19 07/11/19 History ALButerol Sulfate [Ventolin Neb] 1 puff PO DAILY 07/10/19 07/11/19 History Aspirin 325 mg PO DAILY 07/10/19 07/11/19 History Pravastatin Sodium [Pravachol] 20 mg PO DAILY 07/10/19 07/11/19 History sitaGLIPtin Phosphate [Januvia] 25 mg PO DAILY 07/10/19 07/11/19 History Allergies: No Known Allergies Allergy (Verified 07/28/19 21:25) - Follow up Plan Referrals: Francis Herman MD [Primary Care Provider] - Disposition: Quality - Care Measures CORE MEASURES:: N/A
== END 2020-04-14 13:07 | disposition expired | DRG 64 ==
LOC: ERS 09:17 → CCU 10:40
PROVIDERS: ADMIT Internal Medicine; ATTEND Internal Medicine
PROC: 5A1935Z Respiratory Ventilation, Less than 24 Consecutive Hours (ICD-10-PCS; principal; 2020-04-13)
PROC: 0BH17EZ Insertion of Endotracheal Airway into Trachea, Via Natural or Artificial Opening (ICD-10-PCS; 2020-04-13)
PROC: 0DH673Z Insertion of Infusion Device into Stomach, Via Natural or Artificial Opening (ICD-10-PCS; 2020-04-13)
PROC: 6A4Z0ZZ Hypothermia, Single (ICD-10-PCS; 2020-04-13)
DX: I60.4 Nontraumatic subarachnoid hemorrhage from basilar artery (principal); U07.1 COVID-19; J96.00 Acute respiratory failure, unspecified whether with hypoxia or hypercapnia; G93.40 Encephalopathy, unspecified; I16.1 Hypertensive emergency; Z66 Do not resuscitate; I10 Essential (primary) hypertension; I45.81 Long QT syndrome; J44.9 Chronic obstructive pulmonary disease, unspecified; E78.5 Hyperlipidemia, unspecified; E87.6 Hypokalemia; K21.9 Gastro-esophageal reflux disease without esophagitis; E11.9 Type 2 diabetes mellitus without complications; Z90.49 Acquired absence of other specified parts of digestive tract; Z90.710 Acquired absence of both cervix and uterus; Z79.84 Long term (current) use of oral hypoglycemic drugs; Z79.82 Long term (current) use of aspirin; Z79.899 Other long term (current) drug therapy
CPT/HCPCS: 31500; 36415; 36416; 36600; 51702; 70450; 70496; 70498; 71045; 80048; 80053; 80061; 82805; 83036; 84443; 84484; 85025; 85610; 85730; 93005; 94002; 94003; 96365; 96367; 96368; 96375; 99292; C9113; J1953; J2997; J3010; J3475; J3480; J3490; Q9967; U0002